=== PATIENT | female | born 1980 | race Two or more races ===

== ENCOUNTER 2019-10-22 23:06 | Emergency (ER) | payer MEDICAID ==
[~2019-10-22] VITALS: Ht 165.1 cm; Wt 104.3 kg
--- NOTE | 2019-10-22 23:12 | NUR ---
PT AAOX4. BIBRA C/O EPIGASTRIC PAIN THAT RADIATES TO L ARM FOR THE PAST MONTH. PER PATIENT SHE HAS HAD "LOW HGB" X5 DAYS AGO, PT REFUSED TRANSFUSION THEN. AT BEDSIDE SPEAKING TO PT REGARDING TRANSFUSION AFTER CHECKING LABS. PT STATED SHE IS WILLING TO.
--- NOTE | 2019-10-22 23:28 | NUR ---
LABS COLLECTED AND SENT.
[2019-10-22] MEDS ORDERED: ACETAMINOPHEN 325 MG TABLET PO ONE (23:30)
--- NOTE | 2019-10-22 23:31 | NUR ---
URINE COLLECTED AND SENT TO LAB
[2019-10-22] MEDS ORDERED: ACETAMINOPHEN ES 500 MG TABLET ONE (23:32)
[2019-10-22 23:44] LABS: BASOPHILS # (AUTO) 0.1 /CMM (0.0-0.2); BASOPHILS % (AUTO) 0.7 % (0.0-2.0); EOSINOPHILS % (AUTO) 1.4 % (0.0-6.0); HEMATOCRIT 25 % (33-45); HEMOGLOBIN 7.3 g/dL (11.5-14.8); LYMPHOCYTES % (AUTO) 22.7 % (20.0-44.0); MEAN CORPUSCULAR HGB CONC 30 g/dl (31.0-36.0); MEAN CORPUSCULAR VOLUME 58 fL (82-100); MONOCYTES # (AUTO) 0.7 /CMM (0.1-1.30); MONOCYTES % (AUTO) 7.4 % (2.0-12.0); NEUTROPHILS # (AUTO) 6.1 /CMM (1.8-8.9); NEUTROPHILS % (AUTO) 67.8 % (43.0-81.0); PLATELET COUNT (AUTO) 394 /CMM (150-450); RED BLOOD CELL COUNT(AUTO) 4.32 MIL/uL (4.0-5.2)
[2019-10-22 23:46] LABS: APPEARANCE,URINE CLEAR (CLEAR); BILIRUBIN,URINE NEGATIVE (NEGATIVE); BLOOD, URINE TRACE-INTA Ery/uL (NEGATIVE); COLOR,URINE YELLOW (YELLOW); KETONES,URINE NEGATIVE (NEGATIVE); LEUKOCYTE ESTERASE ,URINE NEGATIVE (NEGATIVE); NITRITE, URINE NEGATIVE (NEGATIVE); PROTEIN,URINE NEGATIVE (NEGATIVE); UGLUCOSE NEGATIVE (NEGATIVE); UROBILINOGEN,URINE 0.2 EU/dL (0.2)
[2019-10-22 23:53] LABS: CALCIUM, SERUM 8.7 mg/dL (8.5-10.1); CREATININE 0.7 mg/dL (0.6-1.3); POTASSIUM 3.3 mmol/L (3.5-5.1)
[2019-10-22 23:57] LABS: BACTERIA,URINE None seen /HPF (None Seen); RBC,URINE 0-2 /HPF (0-2); SQUAMOUS EPITHELIAL CELL,UR Few /HPF (None Seen); WBC,URINE 0-2 /HPF (0-3)
[2019-10-22 23:58] LABS: ALBUMIN 3.9 g/dL (3.4-5.0); BILIRUBIN,DIRECT 0.1 mg/dL (0.0-0.2); BILIRUBIN,TOTAL 0.2 mg/dL (0.2-1.0)
--- NOTE | 2019-10-23 01:05 | NUR ---
BLOOD TRANSFUSION INITIATED
--- NOTE | 2019-10-23 01:53 | NUR ---
PT RESTING COMFORTABLY. VSS.
--- NOTE | 2019-10-23 03:30 | NUR ---
IV removed. Catheter intact and site benign. Pressure and 4x4 applied to site. No bleeding noted.
--- NOTE | 2019-10-23 03:30 | NUR ---
Patient discharged to home in stable condition. Written and verbal after care instructions given. Patient verbalizes understanding of instruction. Pt told to check with her PMD. Pt picked up by family.
[2019-10-23 03:31] VITALS: BP 124/73
== END 2019-10-23 04:09 | disposition home or self-care (01) ==
LOC: ER 23:12
DX: D64.9 Anemia, unspecified (principal); R42 Dizziness and giddiness; R10.13 Epigastric pain
CPT/HCPCS: 36415 ×2; 36430; 71045; 74176; 80048; 80076; 81001; 85025; 85730; 86850; 86921; 93005; 99285; J7050; P9016; 81000-TC

== ENCOUNTER 2020-08-21 18:32 | Emergency (ER) | payer MEDICAID ==
[~2020-08-21] VITALS: Ht 165.1 cm; Wt 103.4 kg
[2020-08-21] MEDS ORDERED: ONDANSETRON HCL/PF 4 MG/2 ML VIAL ONE (18:54)
[2020-08-21] MEDS ORDERED: MORPHINE SULFATE INJ 4 MG/ML DISP.SYRIN ONE (18:54)
[2020-08-21] MEDS ORDERED: IV NS 0.9% 1,000 ML BAG IV ONE (19:00)
[2020-08-21] MEDS ORDERED: ONDANSETRON HCL/PF 4 MG/2 ML VIAL IVP ONE (19:00)
[2020-08-21] MEDS ORDERED: MORPHINE SULFATE INJ 2 MG/ML DISP.SYRIN IV ONE (19:00)
[2020-08-21 19:07] LABS: BASOPHILS % (AUTO) 0.5 % (0.0-2.0); HEMATOCRIT 36 % (33-45); LYMPHOCYTES % (AUTO) 37.3 % (20.0-44.0); MEAN CORPUSCULAR HGB CONC 33 g/dl (31.0-36.0); MEAN CORPUSCULAR VOLUME 85 fL (82-100); MONOCYTES # (AUTO) 0.7 /CMM (0.1-1.30); MONOCYTES % (AUTO) 8.2 % (2.0-12.0); NEUTROPHILS # (AUTO) 4.2 /CMM (1.8-8.9); PLATELET COUNT (AUTO) 350 /CMM (150-450); RED BLOOD CELL COUNT(AUTO) 4.29 MIL/uL (4.0-5.2); WHITE BLOOD COUNT (AUTO) 8.1 K/uL (4.3-11.0)
--- NOTE | 2020-08-21 19:09 | NUR ---
BIBFAMILY FROM HOME TO ER BED 7. AAOX4. NOT IN RESP DISTRESS. AMBULATORY. CAME IN FOR HEADACHE X 3 DAYS. PAIN RATED 10/10. PT ALSO COMPLAINING OF NAUSEA. NO NEURO DEFICIT. WASTA THE BEDSIDE FOR EVAL. ORDERS RECEIVED, NOTED AND CARRIED OUT.
--- NOTE | 2020-08-21 19:13 | NUR ---
URINE COLLECTED AND SENT TO LAB
[2020-08-21 19:18] LABS: CALCIUM, SERUM 9.1 mg/dL (8.5-10.1); CARBON DIOXIDE 27 mmol/L (21-32); CHLORIDE 102 mmol/L (98-107); CREATININE 0.6 mg/dL (0.6-1.3); GLUCOSE 106 mg/dL (74-106); POTASSIUM 3.5 mmol/L (3.5-5.1); SODIUM SERUM 138 mmol/L (136-145); UREA NITROGEN, BLOOD 11 mg/dL (7-18)
[2020-08-21] MEDS ORDERED: IOHEXOL-350 100 ML VIAL IV ONE (19:30)
[2020-08-21] MEDS ORDERED: IV NS 0.9% 250 ML IV ONE (19:30)
--- NOTE | 2020-08-21 19:31 | NUR ---
PT TO CT ON ANA ROSA
[2020-08-21] MEDS ORDERED: CODE1CAP32 PO (20:35)
--- NOTE | 2020-08-21 20:44 | NUR ---
Patient discharged to home in stable condition. Written and verbal after care instructions given. Patient verbalizes understanding of instruction.IV removed. Catheter intact and site benign. Pressure and 4x4 applied to site. No bleeding noted. Pt ambulatory with a steady gait
[2020-08-21 20:48] VITALS: BP 143/78
== END 2020-08-21 22:10 | disposition home or self-care (01) ==
LOC: ER 18:32
DX: R51.9 Headache, unspecified (principal); R11.0 Nausea; Z79.899 Other long term (current) drug therapy
CPT/HCPCS: 36415; 70496; 70498; 80048; 84484; 85025; 85730; 93005; 96361; 96374; 96375; 99285; J2270; J2405; J7030; J7050; Q9967